=== PATIENT | female | born 1975 | race Caucasian/White ===

== ENCOUNTER 2017-08-03 19:15 | Emergency (ER) | payer MEDICAID, OTHER ==
[~2017-08-03] VITALS: Ht 160 cm; Wt 85.9 kg
[2017-08-03 19:27] VITALS: BP 123/80; PULSE 65; RESP 16; O2SAT 97
--- NOTE | 2017-08-03 20:24 | DRSVH ---
PROCEDURE: X-RAY FINGERS, TWO VIEWS RIGHT INDICATIONS: swelling and pain TECHNIQUE: AP hand, 2 views of the right third finger(s) acquired. COMPARISON: None. FINDINGS: Bones: No fractures or dislocations. No suspicious bony lesions. No periosteal reaction or osseous erosive changes. Soft tissues: No suspicious soft tissue calcifications. IMPRESSION: 1. No fracture. No osseous lesion. If there are persistent symptoms or clinical suspicion for patholo gy, then repeat radiographs or advanced imaging (CT, MRI or bone scan) should be considered for furth er evaluation. 2. No fransisco evidence of osteomyelitis. Plain film radiographs can be insensitive to osteomyelitis dur ing the initial 15 days of the disease process. If there is clinical concern for osteomyelitis, then three-phase nuclear medicine bone scan is warranted. Dictated by: Martha Grewal MD, PhD on 08/03/2017 at 20:22 Approved by: Martha Grewal MD, PhD on 08/03/2017 at 20:23
--- NOTE | 2017-08-03 22:05 | ED.REPORT ---
HPI-Extremity Problem Lower Date of Service Aug 03, 2017 ED Provider: Michael Conti MD Patient is a 42 year female with a history of fibromyalgia who presents to the ED complaining of right thigh pain. Associated symptoms include swelling of the thigh, right ankle swelling and swelling of the right third finger. The patient reports that her leg has gotten worse over the past month and is painful to walk on. She states that her leg is "hot to the touch". Patient denies any recent long periods of travel. Nursing Notes Stated Complaint: LEG PAIN Chief Complaint: Extremity Trauma Nursing Notes Reviewed: Yes Allergies: Coded Allergies: celecoxib (Verified Allergy, Intermediate, tongue swelling, rash, 08/03/17) General Time Seen by MD: 22:04 Chief Complaint Thigh injury right Hx Obtained From: Patient Arrived By: Walk-in Onset Occurred: More than a week ago... (1 month) Symptom Duration: Since onset Location: : Thigh right Quality: Painful Exacerbated by: Movement Similar Sx Previous: No Past Medical History Past Medical History fibromyalgia degenerative disc disease hypothyroid Social History Other Social History: Good social support Ambulatory Status Independent Review of Systems Musculoskeletal: Reports: Extremity pain, Extremity swelling Neurologic: Reports: Problem walking Complete sys rev & neg: except as marked. Physical Exam Initial Vital Signs Vital Signs (First) Date Time Temp Pulse Resp B/P Pulse Ox O2 Delivery O2 Flow Rate FiO2 08/03/17 19:27 37.0 65 16 123/80 97 Room Air Initial VS: Reviewed Lower Extremity / Pelvis / MS: Atraumatic, Inspection NL dp pulses intact no palpable cord do not appreciate any swelling in the thigh thigh is not warm Ankle / Foot: Atraumatic, Inspection NL slight swelling in the right calf no palpable cord General/Constitutional: Awake, Alert, No acute distress Respiratory / Chest: Atraumatic, No respiratory distress Skin: Atraumatic, Color NL, No rash, Warm, Dry Neurologic: Oriented X3, Speech NL Head / Eyes: Atraumatic, Normocephalic Upper Extremity / MS: Atraumatic, Inspection NL Wrist / Hand: Atraumatic, Inspection NL visually the finger appears normal do not appreciate any swelling of the third middle finger no lymphangetic streaking Interpretation & Diagnostics Interpretation & Diagnostics: US VENOUS DUPLEX LOWER EXTREMITY: No evidence of DVT in the right leg at 2339 X-Ray Interpretation Xray Interpretation: IMPRESSION: 1. No fracture. No osseous lesion. If there are persistent symptoms or clinical suspicion for pathology, then repeat radiographs or advanced imaging (CT, MRI or bone scan) should be considered for further evaluation. 2. No fransisco evidence of osteomyelitis. Plain film radiographs can be insensitive to osteomyelitis during the initial 15 days of the disease process. If there is clinical concern for osteomyelitis, then three-phase nuclear medicine bone scan is warranted. Dictated by: Martha Grewal MD, PhD on 08/03/2017 at 20:22 Approved by: Martha Grewal MD, PhD on 08/03/2017 at 20:23 X-Ray Ordered: Hand right Interpretation / Wet Read by: Interpret - Radiologist Re-Eval/Medical Decision Re-Evaluation/Progress : Time of Eval: 00:00 Re-Evaluation/Progress Note: Discussed results and plan for discharge. Patient understands and agrees to plan. All questions were addressed. Counseled Regarding: Diagnosis, Lab results, Need for follow-up, When/why to return to ED Discharge & Departure Impression: Primary Impression: Leg swelling Additional Impression: Finger swelling Disposition: Home Discharge Condition All VS Reviewed: Yes Condition: Stable Additional Instructions: Ed evaluation included interview exam, x-ray of fingers and ultrasound of leg. No emergent/serious cause for leg and finger pain/swelling was found. It is safe for you to follow up next week with your primary care doctor for further evaluation. May use ibuprofen 600mg 3-4 times a day as needed for pain. Referrals: Seema Shanks MD (PCP) Jack Attestation Portions of this note were transcribed by Lakeshia Jerez. I, Dr. Conti personally performed the history, physical exam and medical decision-making; I reviewed and confirmed the accuracy of the information in the transcribed note. Signed by: Jack Tate, 08/03/17 copies to: Seema Shanks MD, Donald L MD Aug 03, 2017 22:05 Day Jerez Aug 03, 2017 22:16
[2017-08-04 00:18] VITALS: BP 116/79; PULSE 59; RESP 18; O2SAT 98
--- NOTE | 2017-08-04 08:28 | DRSVH ---
PROCEDURE: US VEINOUS LEG DUPLEX UNILATERAL, RIGHT INDICATIONS: r leg swelling and pain TECHNIQUE: Real-time imaging, as well as color and pulse Doppler interrogation, were performed of the lower extr emity deep veins from the inguinal ligament to the popliteal fossa. COMPARISON: None. FINDINGS: The deep veins are normally compressible, and free of intraluminal thrombus. Color and pu lse Doppler demonstrate normal phasic intraluminal flow. There is normal augmentation response to di stal compression maneuver. IMPRESSION: No evidence of right lower extremity DVT. Dictated by: Nimo Prado M.D. on 08/04/2017 at 8:26 Approved by: Nimo Prado M.D. on 08/04/2017 at 8:26
== END 2017-08-04 00:24 | disposition home or self-care (01) ==
LOC: SED 19:15
DX: M79.89 Other specified soft tissue disorders (principal); Z88.1 Allergy status to other antibiotic agents